=== PATIENT | female | born 1975 | race Caucasian/White ===

== ENCOUNTER → 2017-08-30 | Outpatient (CLI) | payer OTHER ==
[~2017-08-30] VITALS: Ht 180.3 cm; Wt 86.2 kg
[~2017-08-30] MED LIST: CEFD300C3 PO; DOXY100C42 PO; META800T PO; OXYC-471 PO; cefTRIAXone 2 GM/NS 100 ML IVPB IV ONE; cefTRIAXone 2 GM/NS 100 ML IVPB IV SCH
[2017-08-30] MEDS: CATHETER FLUSH 10 ML SYR IV PRN ×2 (13:03→13:35)
[2017-08-30 13:04] VITALS: BP 121/87
[2017-08-30 15:20] VITALS: BP 121/87
== END ==
LOC: SDC 11:57
PROVIDERS: ATTEND Nurse Practitioner Family
DX: A69.20 Lyme disease, unspecified (principal)
CPT/HCPCS: 36569; 76937; 96365

== ENCOUNTER → 2017-08-31 | Outpatient (CLI) | payer OTHER ==
[~2017-08-31] MED LIST changes: -cefTRIAXone 2 GM/NS 100 ML IVPB IV ONE; -cefTRIAXone 2 GM/NS 100 ML IVPB IV SCH
--- NOTE | 2017-08-31 12:34 | Diagnostic Imaging Report ---
PROCEDURE: MR imaging of the brain without contrast. TECHNIQUE: Multiplanar, multisequence MR imaging of the brain was performed without contrast. INDICATION: Transient neurological deficits. No comparison available. FINDINGS: The diffusion series demonstrates no restriction or evidence of ischemia. There is no MR evidence of intracranial hemorrhage. Ndiaye and white matter signal characteristics are unremarkable. There are no T2 hyperintense white matter lesions evident. There is no mass effect or shift. There is no hydrocephalus. There is no abnormal extra-axial fluid collection. The basilar cisterns are patent. Posterior fossa is unremarkable. Pituitary gland and pineal region appear normal. The mastoid air cells are clear. Orbital contents unremarkable. Paranasal sinuses appear clear. Expected arterial and dural venous sinus flow voids appear preserved. IMPRESSION: 1. Unremarkable MR appearance of the brain. There is no evidence of ischemia, hemorrhage, mass effect or hydrocephalus. Ndiaye and white matter signal and volume appears appropriate. No focal parenchymal signal abnormality demonstrated. Dictated by: Dictated on workstation # [id number]
== END ==
LOC: RAD 11:41
PROVIDERS: ATTEND Physician Assistant
DX: R29.818 Other symptoms and signs involving the nervous system (principal); Z86.19 Personal history of other infectious and parasitic diseases
CPT/HCPCS: 70551

== ENCOUNTER 2017-12-02 15:00 | Outpatient (RCR) | payer OTHER ==
[2017-09-04 15:00] VITALS: BP 132/95
[2017-09-11 16:50] VITALS: BP 0/0
[2017-09-18 15:00] VITALS: BP 123/94
[2017-09-25 14:20] VITALS: BP 136/94
[2017-10-02 15:20] VITALS: BP 136/97
[2017-10-09 14:20] VITALS: BP 126/88
[2017-10-16 15:20] VITALS: BP 146/91
[2017-10-23 15:30] VITALS: BP 138/104
[2017-11-01 09:45] VITALS: BP 122/98
[2017-11-11 15:29] VITALS: BP 122/98
[2017-11-20 14:50] VITALS: BP 132/94
[~2017-12-02] VITALS: Ht 180.3 cm; Wt 86.2 kg
[~2017-12-02 15:00] MED LIST changes: +ALBU6.7H8 IH; +BACL20TA PO; +BUDE10.2 IH; +ESZO3TAB30 PO; +GABA-488 PO; +LORA10TA76 PO; +NF-COLE1GM PO; +THYR240T PO; +ZILE600T PO
[2017-12-02 15:10] VITALS: BP 133/91
== END 2017-12-03 | disposition home or self-care (01) ==
LOC: SDC 15:00
PROVIDERS: ATTEND Internal Medicine
DX: R78.81 Bacteremia (principal); Z45.2 Encounter for adjustment and management of vascular access device
CPT/HCPCS: 99211; 99212

== ENCOUNTER 2018-03-08 09:30 | Outpatient (RCR) | payer OTHER ==
[2017-12-16 15:10] VITALS: BP 126/87
[2017-12-26 14:50] VITALS: BP 143/91
[2018-01-02 15:38] VITALS: BP 130/94
[2018-01-06] MEDS: CATHETER FLUSH 10 ML SYR IV PRN ×2 (12:40→15:30)
[2018-01-06 12:52] LABS: HEMOGLOBIN 13.3 G/DL (11.5-16.0); MEAN PLATELET VOLUME 10.9 FL (7.4-10.4); RED BLOOD COUNT 4.5 10^6/uL (4.35-5.85); RED CELL DISTRIBUTION WIDTH 13.8 % (10.0-14.5); WHITE BLOOD COUNT 8.2 10^3/uL (4.3-11.0)
[2018-01-06 13:02] LABS: BILIRUBIN,URINE NEGATIVE (NEGATIVE); COLOR,URINE YELLOW; GLUCOSE, URINE (UA) NEGATIVE (NEGATIVE); KETONES,URINE NEGATIVE (NEGATIVE); LEUKOCYTE ESTERASE ,URINE 1+ (NEGATIVE); NITRITE,URINE NEGATIVE (NEGATIVE); PH,URINE 6 (5-9); PROTEIN,URINE 1+ (NEGATIVE); UROBILINOGEN,URINE NORMAL (NORMAL)
[2018-01-06 13:09] LABS: ALANINE AMINOTRANSFERASE 24 U/L (0-55); ALBUMIN 3.9 GM/DL (3.2-4.5); ALKALINE PHOSPHATASE 98 U/L (40-136); BILIRUBIN,TOTAL 0.4 MG/DL (0.1-1.0); BUN/CREATININE RATIO 12; CALCIUM 9.2 MG/DL (8.5-10.1); CARBON DIOXIDE 24 MMOL/L (21-32); CHLORIDE 107 MMOL/L (98-107); CREATININE SERUM 0.75 MG/DL (0.60-1.30); GFR ESTIMATED > 60; GLUCOSE 114 MG/DL (70-105); SODIUM 138 MMOL/L (135-145); TOTAL PROTEIN 6.5 GM/DL (6.4-8.2)
[2018-01-06 13:13] LABS: BACTERIA,URINE NEGATIVE /HPF; CLARITY,URINE CLEAR; WBC,URINE RARE /HPF
[2018-01-06] MEDS: VANCOMYCIN 1500 MG/NS 500 ML IVPB IV SCH ×4 (13:26→21:30)
[2018-01-06 15:50] VITALS: BP 143/93
[2018-01-07 03:10] VITALS: BP 125/77
[2018-01-07 09:00] VITALS: BP 120/78
[2018-01-07] MEDS: CATHETER FLUSH 10 ML SYR IV PRN (09:50)
[2018-01-07] MEDS: VANCOMYCIN 1500 MG/NS 500 ML IVPB IV SCH ×4 (09:50→21:16)
[2018-01-07 21:36] VITALS: BP 126/74
[2018-01-08] MEDS: CATHETER FLUSH 10 ML SYR IV PRN ×3 (09:15→21:09)
[2018-01-08] MEDS: VANCOMYCIN 1500 MG/NS 500 ML IVPB IV SCH ×4 (09:15→21:09)
[2018-01-08 11:18] VITALS: BP 129/91
[2018-01-08 21:21] VITALS: BP 133/74
[2018-01-09] MEDS: VANCOMYCIN INJECTION 1,750 MG in NS IV 500 ML 500 ML IV SCH ×2 (10:30→21:04)
[2018-01-09 12:35] VITALS: BP 129/91
[2018-01-09 21:00] VITALS: BP 136/81
[2018-01-09] MEDS: CATHETER FLUSH 10 ML SYR IV PRN (21:04)
[2018-01-10] MEDS: CATHETER FLUSH 10 ML SYR IV PRN ×2 (09:13→11:25)
[2018-01-10] MEDS: VANCOMYCIN INJECTION 1,750 MG in NS IV 500 ML 500 ML IV SCH ×2 (09:15→21:02)
[2018-01-10 11:25] VITALS: BP 130/89
[2018-01-10 21:05] VITALS: BP 136/84
[2018-01-10 23:25] VITALS: BP 136/84
[2018-01-11] MEDS: VANCOMYCIN INJECTION 1,750 MG in NS IV 500 ML 500 ML IV SCH ×2 (08:44→22:07)
[2018-01-11] MEDS: CATHETER FLUSH 10 ML SYR IV PRN (10:50)
[2018-01-11 10:53] VITALS: BP 135/91
[2018-01-11 21:10] VITALS: BP 137/79
[2018-01-12] MEDS: VANCOMYCIN 2000 MG/NS 500 ML IVPB IV SCH ×4 (09:02→21:21)
[2018-01-12 11:16] VITALS: BP 114/81
[2018-01-12 23:43] VITALS: BP 131/80
[2018-01-13] MEDS: VANCOMYCIN 2000 MG/NS 500 ML IVPB IV SCH ×4 (09:21→21:01)
[2018-01-13] MEDS: CATHETER FLUSH 10 ML SYR IV PRN (09:22)
[2018-01-13 11:33] VITALS: BP 132/93
[2018-01-13 23:19] VITALS: BP 110/72
[2018-01-14 08:47] VITALS: BP 132/93
[2018-01-14] MEDS: CATHETER FLUSH 10 ML SYR IV PRN ×2 (08:55→11:30)
[2018-01-14] MEDS: VANCOMYCIN 2000 MG/NS 500 ML IVPB IV SCH ×2 (09:24)
[2018-01-14 09:45] VITALS: BP 132/93
[2018-01-15 08:45] VITALS: BP 124/84
[2018-01-15] MEDS: CATHETER FLUSH 10 ML SYR IV PRN (09:05)
[2018-01-15] MEDS: VANCOMYCIN 2000 MG/NS 500 ML IVPB IV SCH ×4 (09:06→21:11)
[2018-01-15 23:20] VITALS: BP 123/69
[2018-01-16] MEDS: CATHETER FLUSH 10 ML SYR IV PRN ×2 (09:03→11:10)
[2018-01-16] MEDS: VANCOMYCIN 2000 MG/NS 500 ML IVPB IV SCH ×2 (09:05)
[2018-01-16 11:15] VITALS: BP 134/85
[2018-01-29 09:20] VITALS: BP 123/74
[2018-01-29 10:21] LABS: HEMOGLOBIN 12.5 G/DL (11.5-16.0); RED BLOOD COUNT 4.29 10^6/uL (4.35-5.85); WHITE BLOOD COUNT 5.3 10^3/uL (4.3-11.0)
[2018-01-29 10:24] LABS: BILIRUBIN,URINE NEGATIVE (NEGATIVE); CLARITY,URINE CLEAR; COLOR,URINE YELLOW; GLUCOSE, URINE (UA) NEGATIVE (NEGATIVE); KETONES,URINE NEGATIVE (NEGATIVE); LEUKOCYTE ESTERASE ,URINE NEGATIVE (NEGATIVE); NITRITE,URINE NEGATIVE (NEGATIVE); PH,URINE 7 (5-9); PROTEIN,URINE NEGATIVE (NEGATIVE); UROBILINOGEN,URINE NORMAL (NORMAL)
[2018-01-29 10:33] LABS: ALANINE AMINOTRANSFERASE 30 U/L (0-55); ALBUMIN 3.9 GM/DL (3.2-4.5); ALKALINE PHOSPHATASE 101 U/L (40-136); BILIRUBIN,TOTAL 0.3 MG/DL (0.1-1.0); BUN/CREATININE RATIO 12; CALCIUM 9.8 MG/DL (8.5-10.1); CARBON DIOXIDE 23 MMOL/L (21-32); CHLORIDE 109 MMOL/L (98-107); CREATININE SERUM 0.73 MG/DL (0.60-1.30); GFR ESTIMATED > 60; GLUCOSE 92 MG/DL (70-105); POTASSIUM 4.2 MMOL/L (3.6-5.0); SODIUM 140 MMOL/L (135-145); TOTAL PROTEIN 6.5 GM/DL (6.4-8.2)
[2018-01-29 10:40] LABS: BACTERIA,URINE NEGATIVE /HPF; SQUAMOUS EPITHELIAL CELL,UR 0-2 /HPF; WBC,URINE RARE /HPF
[2018-02-05 14:05] VITALS: BP 132/94
[2018-02-06 09:00] VITALS: BP 140/87
[2018-02-06 09:10] LABS: HEMOGLOBIN 12.3 G/DL (11.5-16.0); MEAN PLATELET VOLUME 10.7 FL (7.4-10.4); RED BLOOD COUNT 4.22 10^6/uL (4.35-5.85); RED CELL DISTRIBUTION WIDTH 13.4 % (10.0-14.5); WHITE BLOOD COUNT 4.9 10^3/uL (4.3-11.0)
[2018-02-06 09:11] LABS: BILIRUBIN,URINE NEGATIVE (NEGATIVE); CLARITY,URINE CLEAR; COLOR,URINE YELLOW; GLUCOSE, URINE (UA) NEGATIVE (NEGATIVE); KETONES,URINE NEGATIVE (NEGATIVE); LEUKOCYTE ESTERASE ,URINE 1+ (NEGATIVE); NITRITE,URINE NEGATIVE (NEGATIVE); PH,URINE 6 (5-9); PROTEIN,URINE NEGATIVE (NEGATIVE); UROBILINOGEN,URINE NORMAL (NORMAL)
[2018-02-06 09:21] LABS: BACTERIA,URINE TRACE /HPF; RBC,URINE 50-100 /HPF; WBC,URINE 0-2 /HPF
[2018-02-06 09:25] LABS: ALANINE AMINOTRANSFERASE 30 U/L (0-55); ALBUMIN 3.9 GM/DL (3.2-4.5); ALKALINE PHOSPHATASE 81 U/L (40-136); BILIRUBIN,TOTAL 0.4 MG/DL (0.1-1.0); BUN/CREATININE RATIO 11; CALCIUM 9.6 MG/DL (8.5-10.1); CARBON DIOXIDE 24 MMOL/L (21-32); CHLORIDE 105 MMOL/L (98-107); CREATININE SERUM 0.72 MG/DL (0.60-1.30); GFR ESTIMATED > 60; GLUCOSE 100 MG/DL (70-105); POTASSIUM 4.1 MMOL/L (3.6-5.0); SODIUM 136 MMOL/L (135-145); TOTAL PROTEIN 6.5 GM/DL (6.4-8.2)
[2018-02-12 10:05] VITALS: BP 115/78
[2018-02-12 10:07] LABS: HEMOGLOBIN 12.4 G/DL (11.5-16.0); MEAN PLATELET VOLUME 11.1 FL (7.4-10.4); RED BLOOD COUNT 4.24 10^6/uL (4.35-5.85); WHITE BLOOD COUNT 4.3 10^3/uL (4.3-11.0)
[2018-02-12 10:19] LABS: BILIRUBIN,URINE NEGATIVE (NEGATIVE); CLARITY,URINE CLEAR; COLOR,URINE YELLOW; GLUCOSE, URINE (UA) NEGATIVE (NEGATIVE); KETONES,URINE NEGATIVE (NEGATIVE); LEUKOCYTE ESTERASE ,URINE NEGATIVE (NEGATIVE); NITRITE,URINE NEGATIVE (NEGATIVE); PH,URINE 7 (5-9); PROTEIN,URINE NEGATIVE (NEGATIVE); UROBILINOGEN,URINE NORMAL (NORMAL)
[2018-02-12 10:24] LABS: ALANINE AMINOTRANSFERASE 26 U/L (0-55); ALBUMIN 3.7 GM/DL (3.2-4.5); ALKALINE PHOSPHATASE 78 U/L (40-136); BILIRUBIN,TOTAL 0.4 MG/DL (0.1-1.0); BUN/CREATININE RATIO 10; CALCIUM 9.8 MG/DL (8.5-10.1); CARBON DIOXIDE 26 MMOL/L (21-32); CHLORIDE 105 MMOL/L (98-107); CREATININE SERUM 0.72 MG/DL (0.60-1.30); GFR ESTIMATED > 60; GLUCOSE 107 MG/DL (70-105); SODIUM 137 MMOL/L (135-145); TOTAL PROTEIN 6.3 GM/DL (6.4-8.2)
[2018-02-12 10:32] LABS: BACTERIA,URINE TRACE /HPF
[2018-02-19 13:30] VITALS: BP 122/89
[2018-02-24 09:30] VITALS: BP 128/89
[2018-02-24 09:35] LABS: BILIRUBIN,URINE NEGATIVE (NEGATIVE); CLARITY,URINE CLEAR; COLOR,URINE YELLOW; GLUCOSE, URINE (UA) NEGATIVE (NEGATIVE); KETONES,URINE NEGATIVE (NEGATIVE); LEUKOCYTE ESTERASE ,URINE NEGATIVE (NEGATIVE); NITRITE,URINE NEGATIVE (NEGATIVE); PH,URINE 6.5 (5-9); PROTEIN,URINE NEGATIVE (NEGATIVE); RED BLOOD COUNT 4.42 10^6/uL (4.35-5.85); RED CELL DISTRIBUTION WIDTH 13.2 % (10.0-14.5); UROBILINOGEN,URINE NORMAL (NORMAL); WHITE BLOOD COUNT 6.6 10^3/uL (4.3-11.0)
[2018-02-24 09:43] LABS: BACTERIA,URINE NEGATIVE /HPF; SQUAMOUS EPITHELIAL CELL,UR 0-2 /HPF
[2018-02-24 09:53] LABS: ALANINE AMINOTRANSFERASE 20 U/L (0-55); ALBUMIN 3.9 GM/DL (3.2-4.5); ALKALINE PHOSPHATASE 81 U/L (40-136); BILIRUBIN,TOTAL 0.2 MG/DL (0.1-1.0); BUN/CREATININE RATIO 10; CALCIUM 9.7 MG/DL (8.5-10.1); CARBON DIOXIDE 22 MMOL/L (21-32); CHLORIDE 107 MMOL/L (98-107); CREATININE SERUM 0.71 MG/DL (0.60-1.30); GFR ESTIMATED > 60; GLUCOSE 90 MG/DL (70-105); POTASSIUM 4.1 MMOL/L (3.6-5.0); SODIUM 137 MMOL/L (135-145); TOTAL PROTEIN 6.7 GM/DL (6.4-8.2)
[2018-02-24 09:58] LABS: VANCOMYCIN,TROUGH 8.4 UG/ML (10.0-20.0)
[2018-02-28 08:25] VITALS: BP 126/75
[2018-03-04] MEDS: CATHETER FLUSH 10 ML SYR IV PRN ×2 (09:13→09:20)
[2018-03-04 09:20] VITALS: BP 118/86
[~2018-03-08] VITALS: Ht 180.3 cm; Wt 86.2 kg
[~2018-03-08 09:30] MED LIST changes: +TROUGH ORDER-PHARMACY XX NR; +TROUGH ORDER-PHARMACY XX ONE
[2018-03-08 09:39] VITALS: BP 120/86
== END 2018-03-11 09:28 | disposition home or self-care (01) ==
LOC: 4TH RCR 09:30
PROVIDERS: ATTEND Internal Medicine
DX: R78.81 Bacteremia (principal); Z45.2 Encounter for adjustment and management of vascular access device
CPT/HCPCS: 36415; 36592; 80053; 80202; 81000; 85027; 96365; 96366; 99211

== ENCOUNTER 2018-03-11 09:40 | Outpatient (RCR) | payer OTHER ==
[~2018-03-11] VITALS: Ht 180.3 cm; Wt 86.2 kg
[~2018-03-11 09:40] MED LIST changes: -TROUGH ORDER-PHARMACY XX NR; -TROUGH ORDER-PHARMACY XX ONE
[2018-03-11 09:50] VITALS: BP 133/92
[2018-03-11 09:54] LABS: BILIRUBIN,URINE NEGATIVE (NEGATIVE); CLARITY,URINE SLIGHTLY CLOUDY; COLOR,URINE YELLOW; GLUCOSE, URINE (UA) NEGATIVE (NEGATIVE); KETONES,URINE NEGATIVE (NEGATIVE); LEUKOCYTE ESTERASE ,URINE NEGATIVE (NEGATIVE); NITRITE,URINE NEGATIVE (NEGATIVE); PH,URINE 8 (5-9); PROTEIN,URINE NEGATIVE (NEGATIVE); UROBILINOGEN,URINE NORMAL (NORMAL)
[2018-03-11 09:54] LABS: HEMOGLOBIN 12.9 G/DL (11.5-16.0); MEAN PLATELET VOLUME 11.5 FL (7.4-10.4); RED BLOOD COUNT 4.4 10^6/uL (4.35-5.85); RED CELL DISTRIBUTION WIDTH 12.8 % (10.0-14.5)
[2018-03-11 10:07] LABS: BACTERIA,URINE NEGATIVE /HPF
[2018-03-11 10:18] LABS: ALANINE AMINOTRANSFERASE 31 U/L (0-55); ALBUMIN 3.9 GM/DL (3.2-4.5); ALKALINE PHOSPHATASE 75 U/L (40-136); BILIRUBIN,TOTAL 0.3 MG/DL (0.1-1.0); BUN/CREATININE RATIO 7; CALCIUM 9.3 MG/DL (8.5-10.1); CARBON DIOXIDE 24 MMOL/L (21-32); CHLORIDE 106 MMOL/L (98-107); CREATININE SERUM 0.72 MG/DL (0.60-1.30); GFR ESTIMATED > 60; GLUCOSE 93 MG/DL (70-105); POTASSIUM 4.2 MMOL/L (3.6-5.0); SODIUM 138 MMOL/L (135-145); TOTAL PROTEIN 6.6 GM/DL (6.4-8.2)
== END 2018-03-24 15:05 | disposition home or self-care (01) ==
LOC: SDC 09:40
PROVIDERS: ATTEND Internal Medicine
DX: Z45.2 Encounter for adjustment and management of vascular access device (principal); R78.81 Bacteremia
CPT/HCPCS: 36415; 80053; 80202; 81000; 85027

== ENCOUNTER 2020-05-31 20:14 | Emergency (ER) | payer OTHER ==
[~2020-05-31] VITALS: Ht 180.3 cm; Wt 90.7 kg
[2020-05-31] MEDS ORDERED: PROMETHAZINE INJ 25 MG/ML (PHENERGAN) AMP IVP ONE (20:30)
[2020-05-31] MEDS ORDERED: NS IV 1000 ML 1,000 ML IV SCH (20:30)
--- NOTE | 2020-05-31 20:33 | ED General ---
General Stated Complaint: COVID + AND SYNCOPE Source of Information: Patient Exam Limitations: No Limitations History of Present Illness Date Seen by Provider: May 31, 2020 Time Seen by Provider: 20:28 Initial Comments This is a 45 yo female presents to the ER via [facility] with complaints of fever and 2 episodes of syncope at home. Denies any history of passing out in the past. States she is 11 days post- COVID and has been experiencing fevers, decreased appetite, and N/V. Temperature at home 101.0. Denies chest pain, dizziness, cough, abdominal pain, emesis, diarrhea, dysuria, or hematuria. Allergies and Home Medications Allergies Coded Allergies: NSAIDS (Non-Steroidal Anti-Inflamma (Unverified Allergy, Severe, ANAPHYLAXIS, 09/04/17) aspirin (Unverified Allergy, Severe, ANAPHYLAXIS, 09/04/17) codeine (Unverified Allergy, Severe, ANAPHYLAXIS, 09/04/17) hydrocodone (Unverified Allergy, Severe, ANAPHYLAXIS, 09/04/17) Home Medications Albuterol Sulfate 6.7 Gm Hfa.aer.ad, 6.7 GM IH QID PRN for SHORTNESS OF BREATH, (Reported) Baclofen 20 Mg Tablet, 20 MG PO BID PRN for PAIN-MILD TO MODERATE, (Reported) Budesonide/Formoterol Fumarate 10.2 Gm Hfa.aer.ad, 2 PUFF IH BID, (Reported) Colestipol HCl 1 Gm Tab, 1 GM PO TID, (Reported) Doxycycline Hyclate 100 Mg Tablet, 100 MG PO BID Prescribed by: DON GARCIA on 05/31/202146 Eszopiclone 3 Mg Tablet, 3 MG PO HS, (Reported) Gabapentin 300 Mg Capsule, 300 MG PO HS PRN for PAIN-MILD TO MODERATE, (Reported) Loratadine 10 Mg Tablet, 10 MG PO DAILY, (Reported) Oxycodone HCl/Acetaminophen 1 Each Tablet, 1 TAB PO BID PRN for PAIN-MILD TO MODERATE, (Reported) Promethazine HCl 25 Mg Tablet, 25 MG PO Q6H PRN for NAUSEA/VOMITING Prescribed by: DON GARCIA on 05/31/202146 Thyroid,Pork 240 Mg Tablet, 240 MG PO DAILY, (Reported) Zileuton 600 Mg Tablet, 2 TAB PO BID, (Reported) Patient Home Medication List Home Medication List Reviewed: Yes Review of Systems Review of Systems Constitutional: see HPI EENTM: see HPI Respiratory: see HPI Cardiovascular: see HPI Gastrointestinal: see HPI Genitourinary: no symptoms reported : No Musculoskeletal: no symptoms reported Skin: no symptoms reported Psychiatric/Neurological: No Symptoms Reported Hematologic/Lymphatic: No Symptoms Reported Immunological/Allergic: no symptoms reported Past Ewxtjmb-Joegvg-[place] Hx Seasonal Allergies Seasonal Allergies: No Past Medical History Gallbladder Pneumonia Currently Using CPAP: No Currently Using BIPAP: No Reproductive Disorders: No Sexually Transmitted Disease: No HIV/AIDS: No Adverse Reaction/Blood Tranf: No Physical Exam Vital Signs Vital Signs - First Documented 05/31/20 20:14 Temp 36.4 Pulse 80 Resp 17 B/P (MAP) 123/85 (98) Pulse Ox 98 O2 Delivery Room Air Capillary Refill : Height, Weight, BMI Height: 5'11.00" Weight: 190lbs. 0.0oz. 86.941787mq; 27.9 BMI Method:Stated General Appearance: No Apparent Distress, WD/WN Eyes: Bilateral Eye Normal Inspection, Bilateral Eye EOMI HEENT: PERRL/EOMI, Normal ENT Inspection Neck: Full Range of Motion, Normal Inspection, Supple Respiratory: Lungs Clear, Normal Breath Sounds, No Accessory Muscle Use, No Respiratory Distress Cardiovascular: Regular Rate, Rhythm, No Edema Extremity: Normal Inspection, Normal Range of Motion Neurologic/Psychiatric: Alert, Oriented x3, No Motor/Sensory Deficits, Normal Mood/Affect, Other (No focal or gross neurological deficits ) Skin: Normal Color, Warm/Dry Focused Exam Lactate Level 05/31/20 20:35: Lactic Acid Level 1.52 Lactic Acid Level Progress/Results/Core Measures Suspected Sepsis SIRS Temperature: Pulse: Respiratory Rate: Laboratory Tests 05/31/20 20:35: White Blood Count 11.0 Blood Pressure / Mean: 05/31/20 20:35: Lactic Acid Level 1.52 Laboratory Tests 05/31/20 20:35: Creatinine 0.80, INR Comment 1.0, Platelet Count 182, Total Bilirubin 0.2 Results/Orders Lab Results Laboratory Tests Test 05/31/20 20:35 Range/Units White Blood Count 11.0 4.3-11.0 10^3/uL Red Blood Count 4.26 3.80-5.11 10^6/uL Hemoglobin 12.5 11.5-16.0 g/dL Hematocrit 39 35-52 % Mean Corpuscular Volume 92 80-99 fL Mean Corpuscular Hemoglobin 29 25-34 pg Mean Corpuscular Hemoglobin Concent 32 32-36 g/dL Red Cell Distribution Width 13.0 10.0-14.5 % Platelet Count 182 130-400 10^3/uL Mean Platelet Volume 10.8 9.0-12.2 fL Immature Granulocyte % (Auto) 0 % Neutrophils (%) (Auto) 75 42-75 % Lymphocytes (%) (Auto) 18 12-44 % Monocytes (%) (Auto) 7 0-12 % Eosinophils (%) (Auto) 0 0-10 % Basophils (%) (Auto) 0 0-10 % Neutrophils # (Auto) 8.3 H 1.8-7.8 10^3/uL Lymphocytes # (Auto) 1.9 1.0-4.0 10^3/uL Monocytes # (Auto) 0.7 0.0-1.0 10^3/uL Eosinophils # (Auto) 0.0 0.0-0.3 10^3/uL Basophils # (Auto) 0.0 0.0-0.1 10^3/uL Immature Granulocyte # (Auto) 0.0 0.0-0.1 10^3/uL Prothrombin Time 13.1 12.2-14.7 SEC INR Comment 1.0 0.8-1.4 Activated Partial Thromboplast Time 25 24-35 SEC D-Dimer 0.56 H 0.00-0.49 UG/ML Sodium Level 137 135-145 MMOL/L Potassium Level 3.6 3.6-5.0 MMOL/L Chloride Level 105 98-107 MMOL/L Carbon Dioxide Level 23 21-32 MMOL/L Anion Gap 9 5-14 MMOL/L Blood Urea Nitrogen 8 7-18 MG/DL Creatinine 0.80 0.60-1.30 MG/DL Estimat Glomerular Filtration Rate > 60 BUN/Creatinine Ratio 10 Glucose Level 89 70-105 MG/DL Lactic Acid Level 1.52 0.50-2.00 MMOL/L Calcium Level 8.2 L 8.5-10.1 MG/DL Corrected Calcium 8.6 8.5-10.1 MG/DL Total Bilirubin 0.2 0.1-1.0 MG/DL Aspartate Amino Transf (AST/SGOT) 20 5-34 U/L Alanine Aminotransferase (ALT/SGPT) 17 0-55 U/L Alkaline Phosphatase 80 40-136 U/L Troponin I < 0.028 <0.028 NG/ML Total Protein 6.5 6.4-8.2 GM/DL Albumin 3.5 3.2-4.5 GM/DL Serum Test, Qualitative NEGATIVE NEGATIVE Micro Results Microbiology 05/31/20 Blood Culture - Preliminary, Resulted No growth 05/31/20 Blood Culture - Preliminary, Resulted No growth My Orders Orders - DON GARCIA APRN Cbc With Automated Diff (05/31/20 20:30) Comprehensive Metabolic Panel (05/31/20 20:30) Blood Culture (05/31/20 20:30) Protime With Inr (05/31/20 20:30) Partial Thromboplastin Time (05/31/20 20:30) Chest 1 View, Ap/Pa Only (05/31/20 20:30) Ed Iv/Invasive Line Start (05/31/20 20:30) Ekg Tracing (05/31/20 20:30) Troponin I (05/31/20 20:30) Lactic Acid Analyzer (05/31/20 20:30) Ns Iv 1000 Ml (Sodium Chloride 0.9%) (05/31/20 20:30) Hcg,Qualitative Serum (05/31/20 20:30) Promethazine Injection (Phenergan Injec (05/31/20 20:30) Fibrin Degradation Products (05/31/20 20:30) Doxycycline Hyclate Tablet (Vibramycin T (05/31/20 22:00) Medications Given in ED Vital Signs/I&O Capillary Refill : Progress Note : Progress Note Examined by me. Cardiac workup initiated. IVF one liter given per EMS en route. Ordered Phenergan 25mg IV to be given in 1 liter NS. Resting comfortably. EKG reassuring, SR with no ST changes. CXR shows bilateral infiltrates, likely post COVID PNA. Reported improvement of nausea with phenergan. States she feels much better. Reviewed discharge plan and she is agreeable with plan. ECG Initial ECG Impression Date: May 31, 2020 Initial ECG Impression Time: 20:44 Initial ECG Rate: 77 Initial ECG Rhythm: Normal Sinus Diagnostic Imaging Diagonstic Imaging: Xray Plain Films/CT/US/NM/MRI: chest Comments NAME: STEVO LUC[facility] REC#: [id number] PT STATUS: REG ER : 1975 PHYSICIAN: DON GARCIA APRN ADMIT DATE: 05/31/20/ER Signed Date of Exam:05/31/20 CHEST 1 VIEW, AP/PA ONLY INDICATION: Shortness of breath. Covid positive. COMPARISON with 10/16/2015. FINDINGS: Patchy alveolar infiltrates have developed in the left lower lobe and the right perihilar region since the previous exam. The lungs are well aerated. The heart is not enlarged. There is no pulmonary edema or hilar adenopathy. No pneumothorax or pleural effusion. No bony abnormalities. IMPRESSION: Findings are consistent with developing mild patchy alveolar pneumonias bilaterally. Dictated by: Dictated on workstation # [id number] Dict: 05/31/202132 Trans: 05/31/202137 [facility] [id number] Interpreted by: KAMRON MELGAR MD Electronically signed by: KAMRON MELGAR MD 05/31/202137 Departure Impression Primary Impression: Syncope Additional Impression: Pneumonia due to 2019 novel coronavirus Disposition: HOME, SELF-CARE Condition: Improved Departure-Patient Inst. Decision time for Depature: 21:45 Referrals: DIEGO MCCOY DO (PCP/Family) Primary Care Physician Patient Instructions: Syncope (Fainting) (DC) Add. Discharge Instructions: Plan: 1. Discharge home. 2. May take Tylenol or Ibuprofen as needed for pain per package instructions. 3. Take Phenergan 25mg by mouth every 6 hours as needed for nausea/vomiting. 4. Take Doxycycline 100mg by mouth twice a day for 10 days. 5. Return for any new or concerning symptoms. Scripts Promethazine HCl (Promethazine Tablet) 25 Mg Tablet 25 MG PO Q6H PRN for NAUSEA/VOMITING, #10 TAB 0 Refills Prov: DON GARCIA BICYCLE SUBASSEMBLER 05/31/20 Doxycycline Hyclate (Doxycycline Hyclate) 100 Mg Tablet 100 MG PO BID for 10 Days, #20 TAB 0 Refills Prov: DON GARCIA B[employer]YCLE SUBASSEM[employer]ER 05/31/20 DON GARCIA BICYCLE SUBASSEM[employer]ER May 31, 2020 20:33
--- NOTE | 2020-05-31 21:00 | NUR ---
NORMAL SALINE BOLUS INITIATED PER [facility] IN ROUTE TO FACILITY, COMPLETE. 1000ML INTAKE.
[2020-05-31 21:03] LABS: BASOPHILS % (AUTO) 0 % (0-10); EOSINOPHILS % (AUTO) 0 % (0-10); HEMATOCRIT 39 % (35-52); HEMOGLOBIN 12.5 g/dL (11.5-16.0); LYMPHOCYTES # (AUTO) 1.9 10^3/uL (1.0-4.0); LYMPHOCYTES % (AUTO) 18 % (12-44); MEAN CORPUSCULAR HEMOGLOBIN 29 pg (25-34); MEAN CORPUSCULAR HGB CONC 32 g/dL (32-36); MEAN CORPUSCULAR VOLUME 92 fL (80-99); MEAN PLATELET VOLUME 10.8 fL (9.0-12.2); MONOCYTES # (AUTO) 0.7 10^3/uL (0.0-1.0); MONOCYTES % (AUTO) 7 % (0-12); NEUTROPHILS # (AUTO) 8.3 10^3/uL (1.8-7.8); NEUTROPHILS % (AUTO) 75 % (42-75); PLATELET COUNT 182 10^3/uL (130-400)
[2020-05-31 21:05] VITALS: BP_SYST 118; BP_SYST 120; BP_SYST 135; BP_DIAS 80; BP_DIAS 83; BP_DIAS 95
[2020-05-31 21:16] LABS: ALBUMIN 3.5 GM/DL (3.2-4.5); CHLORIDE 105 MMOL/L (98-107); POTASSIUM 3.6 MMOL/L (3.6-5.0); SODIUM 137 MMOL/L (135-145)
[2020-05-31 21:17] LABS: CALCIUM 8.2 MG/DL (8.5-10.1)
[2020-05-31 21:18] LABS: GLUCOSE 89 MG/DL (70-105); TOTAL PROTEIN 6.5 GM/DL (6.4-8.2)
[2020-05-31 21:19] LABS: CARBON DIOXIDE 23 MMOL/L (21-32); FIBRIN DEGRADATION PRODUCTS 0.56 UG/ML (0.00-0.49); PROTHROMBIN TIME PATIENT 13.1 SEC (12.2-14.7)
[2020-05-31 21:20] LABS: BILIRUBIN,TOTAL 0.2 MG/DL (0.1-1.0)
[2020-05-31 21:22] LABS: ALKALINE PHOSPHATASE 80 U/L (40-136); GFR ESTIMATED > 60
[2020-05-31 21:23] LABS: BUN/CREATININE RATIO 10
[2020-05-31 21:25] LABS: ALANINE AMINOTRANSFERASE 17 U/L (0-55)
--- NOTE | 2020-05-31 21:36 | Diagnostic Imaging Report ---
INDICATION: Shortness of breath. Covid positive. COMPARISON with 10/16/2015. FINDINGS: Patchy alveolar infiltrates have developed in the left lower lobe and the right perihilar region since the previous exam. The lungs are well aerated. The heart is not enlarged. There is no pulmonary edema or hilar adenopathy. No pneumothorax or pleural effusion. No bony abnormalities. IMPRESSION: Findings are consistent with developing mild patchy alveolar pneumonias bilaterally. Dictated by: Dictated on workstation # [id number]
[2020-05-31] MEDS ORDERED: DOXY100T2 PO (21:47)
[2020-05-31] MEDS ORDERED: PROM25TA14 PO (21:47)
[2020-05-31] MEDS ORDERED: DOXYCYCLINE 100 MG (VIBRAMYCIN) TABLET PO ONE (22:00)
[2020-05-31 22:05] VITALS: BP 127/83
--- NOTE | 2020-05-31 22:05 | NUR ---
IS TEACHING BY THIS RN. PT VOICES NO QUESTIONS OR CONCERNS REGARDING TEACHING. IS SENT HOME WITH PT.
== END 2020-05-31 22:05 | disposition home or self-care (01) ==
LOC: EDUNIT# 20:14 → ER 20:16
DX: U07.1 COVID-19 (principal); J12.82 Pneumonia due to coronavirus disease 2019; R55 Syncope and collapse; Z88.6 Allergy status to analgesic agent; Z88.5 Allergy status to narcotic agent; Z79.51 Long term (current) use of inhaled steroids
CPT/HCPCS: 36415; 71045; 80053; 83605; 84484; 84703; 85025; 85379; 85610; 85730; 87040; 93005